=== PATIENT | female | born 1960 | race Caucasian/White ===

== ENCOUNTER → 2017-04-03 | Emergency (ER) | payer OTHER ==
--- NOTE | 2017-04-03 17:43 | ED NURSING NOTES ---
Clinical Report - Nurses [facility] [address] [place] [address] 04/03/2017 15:00 Patient: COMPA TEE TRIAGE Triage time 15:11. Acuity: LEVEL 3. Chief Complaint: ABDOMINAL PAIN, NAUSEA, VOMITING and DIARRHEA and (spitting up blood, from forcing self to vomit Upper eyelids with edema. In [place] last week.). Alert. No acute distress. SEPSIS SCREEN: Sepsis Screen: negative. Negative (no infection suspected/documented). --15:20 Lupe Carter R.N. 15:11 04/03/17. BP: 157/86. HR: 62. RR: 18. O2 saturation: 96% on room air. Temp: 97.9 F. Pain level now: 07/10. --15:20 Lupe Carter R.N. 15:11 04/03/17. BP: 157/86. HR: 62. RR: 18. O2 saturation: 96% on room air. Temp: 97.9 F. Pain level now: 07/10. --15:20 Lupe Carter R.N. Weight: 61.2 kg stated. Height/Length: 62 inches Per Patient. BMI: 24.7. --15:18 Lupe Carter R.N. Medications Atrovent. Gabapentin 300mg tid. Glipizide 5 mg. Hydroxyzine. Ranitidine 150 bid. Sinbulair 10 mg daily. Theophylline XR 300mg BID. Trazodone 300mg daily. --15:17 Lupe Carter R.N. Medication/allergy information source: the patient. --15:20 Lupe Carter R.N. Allergies None. --15:17 Lupe Carter R.N. History Arrived by private vehicle. Historian: patient. Primary physician (yovani). This started last night. ( Same in the past. Consult with GI 04/20.). She has had diarrhea and abdominal pain. Last oral intake by patient was breakfast. 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 PAST MEDICAL HX: Immunizations: status is unknown. The patient has had a hysterectomy. SOCIAL HX: Former smoker (cigarette)- less than 1 pack per day. Occasional alcohol use. --15:20 Lupe Carter R.N. PROBLEMS: Contusion. Fall. PSTD. Depression. Asthma. Diabetes Mellitus. --15:13 Lupe Carter R.N. ADDITIONAL SURGERIES: Hand Surgery. Hysterectomy. Rotator Cuff Surgery. Tonsillectomy. --15:13 Lupe Carter R.N. Interventions ID band on patient. To room. --15:20 Lupe Carter R.N. PHYSICAL ASSESSMENT To room via wheelchair. GENERAL / NEURO / PSYCH: Alert. Oriented X 4. Appears anxious. HEENT: Mucous membranes are pink. RESPIRATORY: Respirations not labored. CVS: Capillary refill less than 2 seconds. GI / : Abdominal tenderness in the periumbilical area. SKIN: Skin is warm and dry. --15:21 Lupe Carter R.N. NURSING PROGRESS NOTES Patient gowned. Head of bed elevated. Two patient identifiers checked. Call light placed in reach. Side rails up x 2. Bed placed in lowest position. Brakes of bed on. Patient ready for evaluation. --15:21 Lupe Carter R.N. 15:26 04/03/2017 Site #1 started via IV in the right antecubital space with an 20g angiocath, with aseptic technique and good blood return; one attempt. Blood drawn: rainbow set. Labeled in the presence of the patient and sent to the lab. Saline lock flushed. --15:26 Lupe Carter R.N. 15:26 04/03/2017 Started bag #1 1000 mL IV Fluids IV NS (Saline); at 1000 mL/hr over 1 hour(s) via site #1. Allergies verified and confirmed 5 rights. IV patency established. IV site checked: no pain, redness, or swelling. IV flushed thoroughly pre- and post-medication administration. --15:27 Lupe Carter R.N. 15:34 04/03/2017 PHENERGAN (Promethazine HCl) IVP 25 mg given over 1 minute(s) via site #1. Allergies verified and confirmed 5 rights. IV patency established. IV site checked: no pain, redness, or swelling. IV flushed thoroughly pre- and post-medication administration. --15:34 Lupe Carter R.N. 17:00 04/03/17. ( Quiet, resting in bed.). --17:00 Lupe Carter R.N. 17:14 04/03/2017 HALDOL (Haloperidol Lactate) IVP 2.5 mg given over 1 minute(s) via site #1. Allergies verified, confirmed 5 rights and sedative warning given to the patient. IV patency established. IV site checked: no pain, redness, or swelling. IV flushed thoroughly pre- and post-medication administration. IVP given by RN. --17:29 Lupe Carter R.N. 17:56 04/03/2017 Site #1 removed upon discharge. Catheter intact. Bandaid applied. --18:28 Lupe Carter R.N. DISPOSITION / DISCHARGE 17:55. Condition at departure: improved. No learning barriers present. Discharge instructions provided and reviewed with the patient. Reviewed medication(s) side effects, precautions, dosing and course information. Prescription(s) given to the patient. Patient verbalized understanding. Written instructions provided in German. The patient was discharged home and accompanied by mail room clerk. She left the Emergency Department ambulatory and via private vehicle. Shingle Catcher driving. Medication list reviewed and validated. --18:27 Lupe Carter R.N. 17:54 04/03/17. BP: 122/77. HR: 86. RR: 16. O2 saturation: 98% on room air. Temp: deferred. Pain level now: 01/08. 16:31 04/03/17. BP: 163/88. HR: 79. RR: 18. O2 saturation: 95% on room air. 15:11 04/03/17. BP: 157/86. HR: 62. RR: 18. O2 saturation: 96% on room air. Temp: 97.9 F. Pain level now: 07/10. --18:27 Lupe Carter R.N. Locked/Released at 04/03/2017 18:29 by Lupe Carter R.N.
--- NOTE | 2017-04-03 17:43 | ED ORDER SUMMARY ---
..... Patient: COMPA TEE OrderSheet [facility] VisitID: [id number] [place] [address] 56y, F Registration Date/Time: 04/03/2017 ORDER SHEET Weight: 61.2 kg (stated) Allergies: None GENERAL ORDERS: CBC w Diff Urgent (15:04/03/2017 Emiliana Hartley) (15:25 SRoberts R.N.) (Ack 15:26 PWeiler ER Tech1) CMP Urgent (15:04/03/2017 Emiliana Hartley) (15:25 SRoberts R.N.) (Ack 15:26 PWeiler ER Tech1) UA-Culture if indicated Urgent (15:04/03/2017 Emiliana Hartley) (Ack 15:26 PWeiler ER Tech1) (16:59 SRoberts R.N.) Lipase Urgent (15:04/03/2017 Emiliana Hartley) (15:25 SRoberts R.N.) (Ack 15:26 PWeiler ER Tech1) Troponin-I Urgent (15:04/03/2017 Emiliana Hartley) (15:26 SRoberts R.N.) (Ack 15:26 PWeiler ER Tech1) Pulse oximeter (15:04/03/2017 Emiliana Hartley) (15:25 SRoberts R.N.) Urine Drug Screen Urgent (15:04/03/2017 Emiliana Hartley) (Ack 15:26 PWeiler ER Tech1) (16:59 SRoberts R.N.) MEDICATION ORDERS: Phenergan IV 25 mg (HIGH ALERT MEDICATION, NOW) (15:04/03/2017 Emiliana Hartley) (15:34 SRoberts R.N.) IV FLUIDS: IV NS : initial bolus 1000 mL (1000 mL/hr), then none - for X1 (NOW) (15:04/03/2017 Emiliana Hartley) (15:27 SRoberts R.N.) Haldol IV 2.5 mg (HIGH ALERT MEDICATION, NOW) (17:04/03/2017 Emiliana Hartley) (17:29 SRoberts R.N.) ORDER SHEET NOTES: [Electronically signed by Lupe Carter R.N. (18:29 04/03/2017)] [Electronically signed by Wei Billingsley Dr. (08:22 04/05/2017)] [Electronically locked/signed by Lupe Carter R.N. (18:29 04/03/2017)]
--- NOTE | 2017-04-03 17:43 | ED NURSING NOTES ---
Clinical Report - Nurses [facility] [address] [place] [address] 04/03/2017 15:00 Patient: COMPA TEE TRIAGE Triage time 15:11. Acuity: LEVEL 3. Chief Complaint: ABDOMINAL PAIN, NAUSEA, VOMITING and DIARRHEA and (spitting up blood, from forcing self to vomit Upper eyelids with edema. In [place] last week.). Alert. No acute distress. SEPSIS SCREEN: Sepsis Screen: negative. Negative (no infection suspected/documented). --15:20 Lupe Carter R.N. 15:11 04/03/17. BP: 157/86. HR: 62. RR: 18. O2 saturation: 96% on room air. Temp: 97.9 F. Pain level now: 07/10. --15:20 Lupe Carter R.N. 15:11 04/03/17. BP: 157/86. HR: 62. RR: 18. O2 saturation: 96% on room air. Temp: 97.9 F. Pain level now: 07/10. --15:20 Lupe Carter R.N. Weight: 61.2 kg stated. Height/Length: 62 inches Per Patient. BMI: 24.7. --15:18 Lupe Carter R.N. Medications Atrovent. Gabapentin 300mg tid. Glipizide 5 mg. Hydroxyzine. Ranitidine 150 bid. Sinbulair 10 mg daily. Theophylline XR 300mg BID. Trazodone 300mg daily. --15:17 Lupe Carter R.N. Medication/allergy information source: the patient. --15:20 Lupe Carter R.N. Allergies None. --15:17 Lupe Carter R.N. History Arrived by private vehicle. Historian: patient. Primary physician (yovani). This started last night. ( Same in the past. Consult with GI 04/20.). She has had diarrhea and abdominal pain. Last oral intake by patient was breakfast. 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 PAST MEDICAL HX: Immunizations: status is unknown. The patient has had a hysterectomy. SOCIAL HX: Former smoker (cigarette)- less than 1 pack per day. Occasional alcohol use. --15:20 Lupe Carter R.N. PROBLEMS: Contusion. Fall. PSTD. Depression. Asthma. Diabetes Mellitus. --15:13 Lupe Carter R.N. ADDITIONAL SURGERIES: Hand Surgery. Hysterectomy. Rotator Cuff Surgery. Tonsillectomy. --15:13 Lupe Carter R.N. Interventions ID band on patient. To room. --15:20 Lupe Carter R.N. PHYSICAL ASSESSMENT To room via wheelchair. GENERAL / NEURO / PSYCH: Alert. Oriented X 4. Appears anxious. HEENT: Mucous membranes are pink. RESPIRATORY: Respirations not labored. CVS: Capillary refill less than 2 seconds. GI / : Abdominal tenderness in the periumbilical area. SKIN: Skin is warm and dry. --15:21 Lupe Carter R.N. NURSING PROGRESS NOTES Patient gowned. Head of bed elevated. Two patient identifiers checked. Call light placed in reach. Side rails up x 2. Bed placed in lowest position. Brakes of bed on. Patient ready for evaluation. --15:21 Lupe Carter R.N. 15:26 04/03/2017 Site #1 started via IV in the right antecubital space with an 20g angiocath, with aseptic technique and good blood return; one attempt. Blood drawn: rainbow set. Labeled in the presence of the patient and sent to the lab. Saline lock flushed. --15:26 Lupe Carter R.N. 15:26 04/03/2017 Started bag #1 1000 mL IV Fluids IV NS (Saline); at 1000 mL/hr over 1 hour(s) via site #1. Allergies verified and confirmed 5 rights. IV patency established. IV site checked: no pain, redness, or swelling. IV flushed thoroughly pre- and post-medication administration. --15:27 Lupe Carter R.N. 15:34 04/03/2017 PHENERGAN (Promethazine HCl) IVP 25 mg given over 1 minute(s) via site #1. Allergies verified and confirmed 5 rights. IV patency established. IV site checked: no pain, redness, or swelling. IV flushed thoroughly pre- and post-medication administration. --15:34 Lupe Carter R.N. 17:00 04/03/17. ( Quiet, resting in bed.). --17:00 Lupe Carter R.N. 17:14 04/03/2017 HALDOL (Haloperidol Lactate) IVP 2.5 mg given over 1 minute(s) via site #1. Allergies verified, confirmed 5 rights and sedative warning given to the patient. IV patency established. IV site checked: no pain, redness, or swelling. IV flushed thoroughly pre- and post-medication administration. IVP given by RN. --17:29 Lupe Carter R.N. 17:56 04/03/2017 Site #1 removed upon discharge. Catheter intact. Bandaid applied. --18:28 Lupe Carter R.N. DISPOSITION / DISCHARGE 17:55. Condition at departure: improved. No learning barriers present. Discharge instructions provided and reviewed with the patient. Reviewed medication(s) side effects, precautions, dosing and course information. Prescription(s) given to the patient. Patient verbalized understanding. Written instructions provided in Slovak. The patient was discharged home and accompanied by paint specialist. She left the Emergency Department ambulatory and via private vehicle. Skeet Operator driving. Medication list reviewed and validated. --18:27 Lupe Carter R.N. 17:54 04/03/17. BP: 122/77. HR: 86. RR: 16. O2 saturation: 98% on room air. Temp: deferred. Pain level now: 01/08. 16:31 04/03/17. BP: 163/88. HR: 79. RR: 18. O2 saturation: 95% on room air. 15:11 04/03/17. BP: 157/86. HR: 62. RR: 18. O2 saturation: 96% on room air. Temp: 97.9 F. Pain level now: 07/10. --18:27 Lupe Carter R.N. Locked/Released at 04/03/2017 18:29 by Lupe Carter R.N.
--- NOTE | 2017-04-03 17:43 | ED CLINICAL REPORT ---
Clinical Report - Physicians/Mid Levels [facility] [address] [place] [address] 04/03/2017 15:00 Patient: COMPA TEE Time Seen: 1511; initial patient contact. Arrived- By private vehicle. Historian- patient. HISTORY OF PRESENT ILLNESS Chief Complaint: VOMITING. This started today and is still present (unchanged). It was abrupt in onset and has been constant but is not gone now. The patient has had nausea and vomiting. No diarrhea, black stools, bloody stools or abdominal pain. The illness is described as severe. Similar symptoms previously: Many times. Recent medical care: Not recently seen/assessed. REVIEW OF SYSTEMS No fever. All systems otherwise negative, except as recorded above. PAST HISTORY See nurses notes. SOCIAL HISTORY Former smoker. Occasional alcohol use. Is a local resident. ADDITIONAL NOTES The nursing notes have been reviewed. PHYSICAL EXAM Vital Signs: 04/03/2017 15:11 BP: 157/86. HR: 62. RR: 18. O2 saturation: 96%. Temp: 97.9 F. Pain level now: 10/10. Oxygen saturation normal. Appearance: Alert. Oriented X3. Patient in mild distress. Eyes: Pupils equal, round and reactive to light. Eyes normal inspection. (mild periorbital edema. no signs of infection.). ENT: Ears normal. Nose normal. Pharynx normal. Neck: Normal inspection. Neck supple. No meningeal signs. CVS: Normal heart rate and rhythm. Heart sounds normal. Pulses normal. Respiratory: No respiratory distress. Breath sounds normal. No rales, rhonchi or wheezes. Abdomen: Soft and nontender. Bowel sounds normal. Skin: Skin warm and dry. Normal skin color. No rash. Normal skin turgor. LABS, X-RAYS, AND EKG Laboratory Tests: UA-Culture if indicated: (LESLYE: 04/03/2017 16:45) ( MsgRcvd 04/03/2017 17:07) Final results Test Result Flag Units (Reference) URINE COLOR YELLOW URINE APPEARANCE CLEAR URINE GLUCOSE TRACE (NEGATIVE) URINE BILIRUBIN NEGATIVE (NEGATIVE) URINE KETONE 1+ (NEGATIVE) URINE SPECIFIC GRAVITY 1.020 (1.010-1.030) URINE PH 7.0 (5.0-8.0) URINE PROTEIN 1+ (NEGATIVE) URINE UROBILINOGEN 0.2 EU/dL (0.2-1.0) URINE NITRITE NEGATIVE (NEGATIVE) URINE BLOOD NEGATIVE (NEGATIVE) URINE LEUK ESTERASE NEGATIVE (NEGATIVE) URINE RBC NONE SEEN rbc/hpf (0-1) URINE WBC 0-1 wbc/hpf (0-1) URINE EPITHELIAL CELLS 1-3 EPI/hpf (0-5) URINE BACTERIA MODERATE (2+ TO 3+) (NONE SEEN) URINE COMMENT CULTURE INDICATED 1+ MUCUSURINE CULTURES ARE SET-UP BASED ON THE FOLLOWING CRITERIA:POSITIVE NITRITEPOSITIVE LEUKOCYTE ESTERASEGREATER THAN 10 WHITE BLOOD CELLSMODERATE (2+) OR GREATER BACTERIA CBC w Diff: (LESLYE: 04/03/2017 15:20) ( [facility] 04/03/2017 15:33) Final results Test Result Flag Units (Reference) WHITE BLOOD COUNT 12.6 H K/uL (4.5-11.5) RED BLOOD COUNT 5.31 H M/uL (4.00-5.20) HEMOGLOBIN 15.5 gm/dL (12.0-16.0) HEMATOCRIT 45.8 % (36.0-46.0) MEAN CELL VOLUME 86 fL (80-100) MEAN CORPUSCULAR HGB 29 pg (26-34) MEAN CORPUSCULAR HGB CONC 34 g/dL (31-37) RED CELL DISTRIBUTION WIDTH 14.2 % (11.6-14.8) PLATELET COUNT 393 K/uL (150-400) NEUTROPHIL % 84.9 H % (50-75) LYMPH % 11.1 L % (25-40) MONO % 3.6 % (3-14) EOSINOPHIL % 0 % (0-4) BASOPHIL % 0.4 % (0-2) Urine Drug Screen: (LESLYE: 04/03/2017 16:45) ( [facility] 04/03/2017 17:08) Final results Test Result Flag Units (Reference) AMPHETAMINE/METHAMPHETAMINE NEGATIVE (NEGATIVE) BARBITURATE NEGATIVE (NEGATIVE) BENZODIAZEPINE NEGATIVE (NEGATIVE) CANNABINOID NEGATIVE (NEGATIVE) COCAINE NEGATIVE (NEGATIVE) ECSTASY POSITIVE H (NEGATIVE) METHADONE NEGATIVE (NEGATIVE) OPIATE NEGATIVE (NEGATIVE) The urine drug screen is a qualitative screening test fordrug overdose and abuse. All screen results should beconsidered as presumptive.Drugs screened for are as follows:BenzodiazepinesCocaineAmphetamines/MetamphetaminesTHC (Tetrahydrocannabinol)OpiatesBarbituratesEcstasyMethadonePositive results are unconfirmed. For confirmation, notifythe lab for the specimen to be sent to the reference lab.All confirmations must be performed by a differentmethodology.The ingestion of natural herbal and plant productscontaining Ephedra/Ephedra metabolites can produce in urineone or more substances capable of cross reacting withamphetamine/methamphetamine immunoassays. These testsprovide a preliminary result only. A more specificalternative chemical method must be used to obtain aconfirmed analytical result. CMP: (LESLYE: 04/03/2017 15:20) ( MsgRcvd 04/03/2017 15:51) Final results Test Result Flag Units (Reference) GLUCOSE 212 H mg/dL (70-110) BUN 12 mg/dL (7-18) CREATININE 0.8 mg/dL (0.6-1.3) Estimated GFR >60 mL/min Estimated GFR- >60 mL/min Note: Persistent reduction over 3 months in eGFR<60 mL/min/1.73 m2 defines CKD. Patients with eGFR values>=60 mL/min/1.73 m2 may also have CKD if evidence ofpersistent proteinuria. Additional information may be foundat www.kidney.org. SODIUM 140 mmol/L (136-145) POTASSIUM 3.8 mmol/L (3.5-5.1) CHLORIDE 102 mmol/L (98-107) CARBON DIOXIDE 26 mmol/L (21-32) CALCIUM 8.9 mg/dL (8.5-10.1) TOTAL PROTEIN 7.6 g/dL (6.4-8.2) ALBUMIN 3.8 g/dL (3.3-5.0) BILIRUBIN, TOTAL 0.3 mg/dL (0.0-1.0) ALKALINE PHOSPHATASE 72 U/L (46-116) AST (SGOT) 15 U/L (15-37) ALT (SGPT) 23 U/L (12-78) LIPASE 101 U/L (73-393) TROPONIN I <0.05 ng/mL (0.00-1.5) TROPONIN REFERENCE RANGE:<0.1 NEGATIVE0.1-1.5 INDETERMINANT>1.5 POSITIVE Culture, Urine: (LESLYE: 04/03/2017 16:45) ( MsgRcvd 04/04/2017 10:13) IP Test Result Flag Units (Reference) CULTURE, URINE DATE: 04/04/17 PRELIM REPORT: PRELIMINARY REPORT #1 VERY EARLY GROWTH: VERY EARLY GROWTH: CULTURE TOO YOUNG FOR WORKUP-REINCUBATED . PROGRESS AND PROCEDURES Course of Care: patient with nausea and vomiting. abdomen non-tender. patient will be evaluated with lab studies. patient without distention and positive flatus. no signs of bowel obstruction. patient ambulatory without distress. will be evaluating for possible hepatic or electrolyte disturbace from vomiting. patient agreeable to treatment and plan. Patient with some improvement with nausea. Patient given additional meds for nausea. patient with significantly improved symptoms. negative labs. abdomen soft and non-tender on repeat. patient stable oupatient candidate. Disposition: Discharged. Condition: good. CLINICAL IMPRESSION Vomiting with nausea (acute). Acute urinary tract infection. INSTRUCTIONS Warnings: GENERAL WARNINGS: Return or contact your physician immediately if your condition worsens or changes unexpectedly, if not improving as expected, or if other problems arise. SPECIFICALLY, return if you develop pain, fever, vomiting, the inability to keep fluids down, blood in vomitus, blood in diarrhea, fainting, lightheadedness or vaginal bleeding. Your Current Medications: CONTINUE TAKING THE FOLLOWING MEDICATIONS: Atrovent*. Gabapentin 300mg tid*. Glipizide 5 mg*. Hydroxyzine*. Ranitidine 150 bid*. Sinbulair 10 mg daily*. Theophylline XR 300mg BID*. Trazodone 300mg daily*. Prescription Medications: Zofran (orally disintegrating tablets) 4 mg: take 1 orally every 8 hours as needed for nausea and vomiting. Dispense ten (10). No refill. Substitution is permissible. Cephalexin 500 mg: take 1 capsule orally every 8 hours for 5 days. No refill. (disp 15 caps) Follow-up: Return to the emergency department as needed. Follow up with your doctor in three days. Reason for referral: recheck today's concerns. Summary of care provided to patient via paper. Screening today revealed the patient's blood pressure to be in the normal range. The patient should follow up with a primary care provider for blood pressure management. Understanding of the discharge instructions verbalized by patient. (Electronically signed by Wei Billingsley Dr. 04/05/2017 8:22)
--- NOTE | 2017-04-03 17:43 | ED ORDER SUMMARY ---
..... Patient: COMPA TEE OrderSheet [facility] VisitID: [id number] [place] [address] 56y, F Registration Date/Time: 04/03/2017 ORDER SHEET Weight: 61.2 kg (stated) Allergies: None GENERAL ORDERS: CBC w Diff Urgent (15:04/03/2017 Emiliana Hartley) (15:25 SRoberts R.N.) (Ack 15:26 PWeiler ER Tech1) CMP Urgent (15:04/03/2017 Emiliana Hartley) (15:25 SRoberts R.N.) (Ack 15:26 PWeiler ER Tech1) UA-Culture if indicated Urgent (15:04/03/2017 Emiliana Hartley) (Ack 15:26 PWeiler ER Tech1) (16:59 SRoberts R.N.) Lipase Urgent (15:04/03/2017 Emiliana Hartley) (15:25 SRoberts R.N.) (Ack 15:26 PWeiler ER Tech1) Troponin-I Urgent (15:04/03/2017 Emiliana Hartley) (15:26 SRoberts R.N.) (Ack 15:26 PWeiler ER Tech1) Pulse oximeter (15:04/03/2017 Emiliana Hartley) (15:25 SRoberts R.N.) Urine Drug Screen Urgent (15:04/03/2017 Emiliana Hartley) (Ack 15:26 PWeiler ER Tech1) (16:59 SRoberts R.N.) MEDICATION ORDERS: Phenergan IV 25 mg (HIGH ALERT MEDICATION, NOW) (15:04/03/2017 Emiliana Hartley) (15:34 SRoberts R.N.) IV FLUIDS: IV NS : initial bolus 1000 mL (1000 mL/hr), then none - for X1 (NOW) (15:04/03/2017 Emiliana Hartley) (15:27 SRoberts R.N.) Haldol IV 2.5 mg (HIGH ALERT MEDICATION, NOW) (17:04/03/2017 Emiliana Hartley) (17:29 SRoberts R.N.) ORDER SHEET NOTES: [Electronically signed by Lupe Carter R.N. (18:29 04/03/2017)] [Electronically signed by Wei Billingsley Dr. (08:22 04/05/2017)] [Electronically locked/signed by Lupe Carter R.N. (18:29 04/03/2017)]
--- NOTE | 2017-04-05 08:22 | ED MED RECONCILIATION SUMMARY ---
Patient: COMPA TEE Medication Reconciliation Report [facility] VisitID: [id number] [address] [place] [address] 56y, F Registration Date/Time: 04/03/2017 Weight: 61.2 kg Height/Length: 62 in. BMI: 24.7 ALLERGIES: None The patient's Home Medications are listed below: CONTINUE TAKING THE FOLLOWING MEDICATIONS: Atrovent Gabapentin 300mg tid Glipizide 5 mg Hydroxyzine Ranitidine 150 bid Sinbulair 10 mg daily Theophylline XR 300mg BID Trazodone 300mg daily The source(s) of the original Home Medication information: patient The following Medications were given to the patient in the Emergency Department: IV NS IV Fluids bolus 0, then 1000 mL/hr, administered: 04/03/2017 3:26:00 PM PHENERGAN [IVP] IVP 25 mg, administered: 04/03/2017 3:34:00 PM HALDOL [IVP] IVP 2.5 mg, administered: 04/03/2017 5:14:00 PM The following Medications were prescribed to the patient: Zofran (orally disintegrating tablets) 4 mg: take 1 orally every 8 hours as needed for nausea and vomiting. Dispense ten (10). No refill. Substitution is permissible. -- Wei Billingsley Dr. Cephalexin 500 mg: take 1 capsule orally every 8 hours for 5 days. No refill.(disp 15 caps) -- Wei Billingsley Dr.
--- NOTE | 2017-04-05 08:22 | ED DISCHARGE INSTRUCTIONS ---
Patient: COMPA TEE General Instructions [facility] VisitID: [id number] [place] [address] 56y, F Registration Date/Time: 04/03/2017 Vomiting with nausea (acute). Acute urinary tract infection. INSTRUCTIONS Warnings: GENERAL WARNINGS: Return or contact your physician immediately if your condition worsens or changes unexpectedly, if not improving as expected, or if other problems arise. SPECIFICALLY, return if you develop pain, fever, vomiting, the inability to keep fluids down, blood in vomitus, blood in diarrhea, fainting, lightheadedness or vaginal bleeding. Your Current Medications: CONTINUE TAKING THE FOLLOWING MEDICATIONS: Atrovent*. Gabapentin 300mg tid*. Glipizide 5 mg*. Hydroxyzine*. Ranitidine 150 bid*. Sinbulair 10 mg daily*. Theophylline XR 300mg BID*. Trazodone 300mg daily*. Prescription Medications: Zofran (orally disintegrating tablets) 4 mg: take 1 orally every 8 hours as needed for nausea and vomiting. Dispense ten (10). No refill. Substitution is permissible. Cephalexin 500 mg: take 1 capsule orally every 8 hours for 5 days. No refill. (disp 15 caps) Follow-up: Return to the emergency department as needed. Follow up with your doctor in three days. Reason for referral: recheck today's concerns. Summary of care provided to patient via paper. Screening today revealed the patient's blood pressure to be in the normal range. The patient should follow up with a primary care provider for blood pressure management. Understanding of the discharge instructions verbalized by patient. ADDITIONAL INFORMATION Vomiting [6Yr-Adult] Vomiting is a common symptom that may be due to different causes. These include gastroenteritis ("stomach flu"), food poisoning and gastritis. There are other more serious causes of vomiting which may be hard to diagnose early in the illness. Therefore, it is important to watch for the warning signs listed below. The main danger from repeated vomiting is dehydration. This is due to excess loss of water and minerals from the body. When this occurs, body fluids must be replaced. Home Care: If symptoms are severe, rest at home for the next 24 hours. You may use acetaminophen (Tylenol) or ibuprofen (Motrin, Advil) to control fever, unless another medicine was prescribed. [NOTE : If you have chronic liver or kidney disease or ever had a stomach ulcer or GI bleeding, talk with your doctor before using these medicines.] (Aspirin should never be used in anyone under 18 years of age who is ill with a fever. It may cause severe liver damage.) Avoid tobacco and alcohol use, which may worsen your symptoms. If medicines for vomiting were prescribed, take as directed. Once vomiting stops, then follow these guidelines: During The First 12-24 Hours follow the diet below: FRUIT JUICES: Apple, grape juice, clear fruit drinks, and electrolyte replacement drinks. BEVERAGES: Soft drinks without caffeine; mineral water (plain or flavored), decaffeinated tea and coffee. SOUPS: Clear broth, consomm and bouillon DESSERTS: Plain gelatin, popsicles and fruit juice bars. As you feel better, you may add 6-8 ounces of yogurt per day. During The Next 24 Hours you may add the following to the above: Hot cereal, plain toast, bread, rolls, crackers Plain noodles, rice, mashed potatoes, chicken noodle or rice soup Unsweetened canned fruit (avoid pineapple), bananas Limit caffeine and chocolate. No spices or seasonings except salt. During The Next 24 Hours Gradually resume a normal diet, as you feel better and your symptoms lessen. Follow Up with your doctor as advised if you are not improving over the next 2-3 days. Get Prompt Medical Attention if any of the following occur: Constant right-sided lower abdominal pain or increasing general abdominal pain Continued vomiting (unable to keep liquids down) for 24 hours Frequent diarrhea (more than 5 times a day); blood (red or black color) or mucus in diarrhea Reduced urine output or extreme thirst Weakness, dizziness or fainting Unusually drowsy or confused Fever of 100.4F (38C) oral or higher, not better with fever medication Yellow color of the eyes or skin Bladder Infection,Female (Adult) A bladder infection ("cystitis" or "UTI") usually causes a constant urge to urinate and a burning when passing urine. Urine may be cloudy, smelly or dark. There may be pain in the lower abdomen. A bladder infection occurs when bacteria from the vaginal area enter the bladder opening (urethra). This can occur from sexual intercourse, wearing tight clothing, dehydration and other factors. Home Care: Drink lots of fluids (at least 6-8 glasses a day, unless you must restrict fluids for other medical reasons). This will force the medicine into your urinary system and flush the bacteria out of your body. Avoid sexual intercourse until your symptoms are gone. Avoid caffeine, alcohol and spicy foods. These can irritate the bladder. A bladder infection is treated with antibiotics. You may also be given Pyridium (generic = phenazopyridine) to reduce the burning sensation. This medicine will cause your urine to become a bright orange color. The orange urine may stain clothing. You may wear a pad or panty-liner to protect clothing. Preventing Future Infections: Always wipe from front to back after a bowel movement. Keep the genital area clean and dry. Drink plenty of fluids each day to avoid dehydration. Both sexual partners should wash before intercourse. Urinate right after intercourse to flush out the bladder. Wear cotton underwear and cotton-lined panty hose; avoid tight-fitting pants. If you are on control pills and are having frequent bladder infections, discuss with your doctor. Follow Up: Return to this facility or see your doctor if ALL symptoms are not gone after three days of treatment. Get Prompt Medical Attention if any of the following occur: Fever of 100.4F (38C) or higher, or as directed by your healthcare provider No improvement by the third day of treatment Increasing back or abdominal pain Repeated vomiting; unable to keep medicine down Weakness, dizziness or fainting Vaginal discharge Pain, redness or swelling in the labia (outer vaginal area) Ondansetron Oral disintegrating tablet What is this medicine? ONDANSETRON (on SIMIN se ángel) is used to treat nausea and vomiting caused by chemotherapy. It is also used to prevent or treat nausea and vomiting after surgery. How should I use this medicine? These tablets are made to dissolve in the mouth. Do not try to push the tablet through the foil backing. With dry hands, peel away the foil backing and gently remove the tablet. Place the tablet in the mouth and allow it to dissolve, then swallow. While you may take these tablets with water, it is not necessary to do so. Talk to your contour sander regarding the use of this medicine in children. Special care may be needed. What side effects may I notice from receiving this medicine? Side effects that you should report to your doctor or health out of school hours care worker as soon as possible: allergic reactions like skin rash, itching or hives, swelling of the face, lips, or tongue breathing problems dizziness fast or irregular heartbeat feeling faint or lightheaded, falls fever and chills swelling of the hands and feet tightness in the chest Side effects that usually do not require medical attention (report to your doctor or health out of school hours care worker if they continue or are bothersome): constipation or diarrhea headache What may interact with this medicine? Do not take this medicine with any of the following medications: -apomorphine -cisapride -dofetilide -dronedarone -pimozide -thioridazine -ziprasidone This medicine may also interact with the following medications: -carbamazepine -phenytoin -rifampicin -tramadol -other medicines that prolong the QT interval (cause an abnormal heart rhythm) What if I miss a dose? If you miss a dose, take it as soon as you can. If it is almost time for your next dose, take only that dose. Do not take double or extra doses. Where should I keep my medicine? Keep out of the reach of children. Store between 2 and 30 degrees C (36 and 86 degrees F). Throw away any unused medicine after the expiration date. What should I tell my health care provider before I take this medicine? They need to know if you have any of these conditions: heart disease history of irregular heartbeat liver disease low levels of magnesium or potassium in the blood an unusual or allergic reaction to ondansetron, granisetron, other medicines, foods, dyes, or preservatives or trying to get breast-feeding What should I watch for while using this medicine? Check with your doctor or health out of school hours care worker as soon as you can if you have any sign of an allergic reaction. Cephalexin Monohydrate Oral tablet What is this medicine? CEPHALEXIN (sef a WILLIAM in) is a cephalosporin antibiotic. It is used to treat certain kinds of bacterial infections It will not work for colds, flu, or other viral infections. How should I use this medicine? Take this medicine by mouth with a full glass of water. Follow the directions on the prescription label. This medicine can be taken with or without food. Take your medicine at regular intervals. Do not take your medicine more often than directed. Take all of your medicine as directed even if you think you are better. Do not skip doses or stop your medicine early. Talk to your contour sander regarding the use of this medicine in children. While this drug may be prescribed for selected conditions, precautions do apply. What side effects may I notice from receiving this medicine? Side effects that you should report to your doctor or health out of school hours care worker as soon as possible: allergic reactions like skin rash, itching or hives, swelling of the face, lips, or tongue breathing problems pain or trouble passing urine redness, blistering, peeling or loosening of the skin, including inside the mouth severe or watery diarrhea unusually weak or tired yellowing of the eyes, skin Side effects that usually do not require medical attention (report to your doctor or health out of school hours care worker if they continue or are bothersome): gas or heartburn genital or anal irritation headache joint or muscle pain nausea, vomiting What may interact with this medicine? probenecid some other antibiotics What if I miss a dose? If you miss a dose, take it as soon as you can. If it is almost time for your next dose, take only that dose. Do not take double or extra doses. There should be at least 4 to 6 hours between doses. Where should I keep my medicine? Keep out of the reach of children. Store at room temperature between 59 and 86 degrees F (15 and 30 degrees C). Throw away any unused medicine after the expiration date. What should I tell my health care provider before I take this medicine? They need to know if you have any of these conditions: kidney disease stomach or intestine problems, especially colitis an unusual or allergic reaction to cephalexin, other cephalosporins, penicillins, other antibiotics, medicines, foods, dyes or preservatives or trying to get breast-feeding What should I watch for while using this medicine? Tell your doctor or health out of school hours care worker if your symptoms do not begin to improve in a few days. Do not treat diarrhea with over the counter products. Contact your doctor if you have diarrhea that lasts more than 2 days or if it is severe and watery. If you have diabetes, you may get a false-positive result for sugar in your urine. Check with your doctor or health out of school hours care worker. You have been given the following additional information: Vomiting (4Y-Adult) Bladder Infection, Female (Adult) Ondansetron Oral disintegrating tablet Cephalexin Monohydrate Oral tablet (Electronically signed by Wei Billingsley Dr. 04/05/2017 8:22)
--- NOTE | 2017-04-05 08:22 | ED MED RECONCILIATION SUMMARY ---
Patient: COMPA TEE Medication Reconciliation Report [facility] VisitID: [id number] [address] [place] [address] 56y, F Registration Date/Time: 04/03/2017 Weight: 61.2 kg Height/Length: 62 in. BMI: 24.7 ALLERGIES: None The patient's Home Medications are listed below: CONTINUE TAKING THE FOLLOWING MEDICATIONS: Atrovent Gabapentin 300mg tid Glipizide 5 mg Hydroxyzine Ranitidine 150 bid Sinbulair 10 mg daily Theophylline XR 300mg BID Trazodone 300mg daily The source(s) of the original Home Medication information: patient The following Medications were given to the patient in the Emergency Department: IV NS IV Fluids bolus 0, then 1000 mL/hr, administered: 04/03/2017 3:26:00 PM PHENERGAN [IVP] IVP 25 mg, administered: 04/03/2017 3:34:00 PM HALDOL [IVP] IVP 2.5 mg, administered: 04/03/2017 5:14:00 PM The following Medications were prescribed to the patient: Zofran (orally disintegrating tablets) 4 mg: take 1 orally every 8 hours as needed for nausea and vomiting. Dispense ten (10). No refill. Substitution is permissible. -- Wei Billingsley Dr. Cephalexin 500 mg: take 1 capsule orally every 8 hours for 5 days. No refill.(disp 15 caps) -- Wei Billingsley Dr.
--- NOTE | 2017-04-05 08:22 | ED MAR SUMMARY ---
..... Medication Administration Record [facility] [address] [place] [address] Patient: COMPA TEE Visit ID: [id number] 56y, F Weight: 61.2 kg Height/Length: 62 in BMI: 24.7 ALLERGIES: None Start 15:26 04/03/2017 Lupe Carter R.N. Medication Administered: IV NS (SALINE), Dose: IV Fluids over 1 hour(s), Rate: 1000 mL/hr, Dispensed: 1000 mL bag, Site: #1 right AC. Medication Ordered: IV NS : initial bolus 1000 mL (1000 mL/hr), then none - for X1 (NOW). Given 15:34 04/03/2017 Lupe Carter R.N. Medication Administered: PHENERGAN [IVP] (PROMETHAZINE HCL), Dose: 25 mg IVP over 1 minute(s), Site: #1 right AC. Medication Ordered: Phenergan IV 25 mg (HIGH ALERT MEDICATION, NOW). Given 17:14 04/03/2017 Lupe Carter R.N. Medication Administered: HALDOL [IVP] (HALOPERIDOL LACTATE), Dose: 2.5 mg IVP over 1 minute(s), Site: #1 right AC. Medication Ordered: Haldol IV 2.5 mg (HIGH ALERT MEDICATION, NOW).
--- NOTE | 2017-04-05 08:22 | ED MAR SUMMARY ---
..... Medication Administration Record [facility] [address] [place] [address] Patient: COMPA TEE Visit ID: [id number] 56y, F Weight: 61.2 kg Height/Length: 62 in BMI: 24.7 ALLERGIES: None Start 15:26 04/03/2017 Lupe Carter R.N. Medication Administered: IV NS (SALINE), Dose: IV Fluids over 1 hour(s), Rate: 1000 mL/hr, Dispensed: 1000 mL bag, Site: #1 right AC. Medication Ordered: IV NS : initial bolus 1000 mL (1000 mL/hr), then none - for X1 (NOW). Given 15:34 04/03/2017 Lupe Carter R.N. Medication Administered: PHENERGAN [IVP] (PROMETHAZINE HCL), Dose: 25 mg IVP over 1 minute(s), Site: #1 right AC. Medication Ordered: Phenergan IV 25 mg (HIGH ALERT MEDICATION, NOW). Given 17:14 04/03/2017 Lupe Carter R.N. Medication Administered: HALDOL [IVP] (HALOPERIDOL LACTATE), Dose: 2.5 mg IVP over 1 minute(s), Site: #1 right AC. Medication Ordered: Haldol IV 2.5 mg (HIGH ALERT MEDICATION, NOW).
== END ==
LOC: ED SRH 14:58
DX: R11.2 Nausea with vomiting, unspecified (principal); N39.0 Urinary tract infection, site not specified; E11.9 Type 2 diabetes mellitus without complications; Z87.891 Personal history of nicotine dependence; Z79.899 Other long term (current) drug therapy
CPT/HCPCS: 90004; 90100; 90469; 90616; 92235; 92760; 92761; 92762; 92763; 92764; 92765; 92766; 92767; 95059